=== PATIENT | female | born 1960 | race Caucasian/White ===

== ENCOUNTER 2016-08-05 21:21 | Outpatient (CLI) | payer OTHER | END 2016-08-05 23:00 | LOC: LAB SRH 21:21 | DX: E03.9 Hypothyroidism, unspecified (principal) | CPT/HCPCS: 90074; 90648; 91023; 91284; 93140 ==

== ENCOUNTER 2016-09-03 20:40 | Outpatient (CLI) | payer OTHER | END 2016-09-03 23:00 | LOC: LAB SRH 20:40 | DX: M19.90 Unspecified osteoarthritis, unspecified site (principal); M54.5 Low back pain; Z79.899 Other long term (current) drug therapy | CPT/HCPCS: 90074; 91494 ==

== ENCOUNTER → 2016-10-31 23:04 | Outpatient (CLI) | payer OTHER | LOC: LAB SRH 23:04 | DX: Z79.899 Other long term (current) drug therapy (principal); M19.90 Unspecified osteoarthritis, unspecified site; M54.5 Low back pain | CPT/HCPCS: 92760; 92761; 92762; 92763; 92764; 92765; 92766; 92767 ==